=== PATIENT | female | born 1945 | race Two or more races ===

== ENCOUNTER 2017-10-06 06:59 | Outpatient (CLI) | payer OTHER ==
[~2017-10-06 06:59] MED LIST: ANTIVERT25 M1 PO; ASA325 M1; BACLOFEN20 MG; CATAFLAM50 MG PO; DIAZEPAM10 MG PO; FEOSOL1 TAB; FOLIC ACID1 MG; GILTUSS LIQUID237 M1 PO; MEDROL4 MG; PLAVIX75 MG; PREVACID 15MG15 MG; SYNTHROID125 MCG PO; SYNTHROID50 MCG; SYNTHROID50 MCG PO; ULTRAM ER200 MG PO; ZYRTEC10 MG PO
== END 2017-10-06 15:26 | disposition home or self-care (01) ==
LOC: NUCLEAR 06:59
DX: I11.9 Hypertensive heart disease without heart failure (principal); E11.9 Type 2 diabetes mellitus without complications; I25.10 Atherosclerotic heart disease of native coronary artery without angina pectoris
CPT/HCPCS: 78452; 93017; A9500; J0153

== ENCOUNTER 2018-03-07 16:02 | Emergency (ER) | payer OTHER ==
[~2018-03-07] VITALS: Ht 160 cm; Wt 72.1 kg
== END 2018-03-07 18:11 | disposition home or self-care (01) ==
LOC: ER 16:02
DX: R51 Headache (principal); H53.8 Other visual disturbances; F41.1 Generalized anxiety disorder

== ENCOUNTER → 2018-05-18 | Outpatient (CLI) | payer OTHER | END | disposition home or self-care (01) | LOC: NUCLEAR 13:13 | DX: M81.0 Age-related osteoporosis without current pathological fracture (principal) ==

== ENCOUNTER → 2018-08-18 | Emergency (ER) | payer OTHER ==
[~2018-08-18] VITALS: Ht 160 cm; Wt 72.6 kg
[~2018-08-18] MED LIST changes: +NORVASC5 MG PO
== END | disposition home or self-care (01) ==
LOC: ER 15:35
DX: I16.0 Hypertensive urgency (principal); I10 Essential (primary) hypertension

== ENCOUNTER → 2020-03-10 | Emergency (ER) | payer OTHER ==
[~2020-03-10] VITALS: Ht 160 cm; Wt 68.0 kg
[~2020-03-10] MED LIST changes: +ECOTRIN81 MG
== END | disposition home or self-care (01) ==
LOC: ER 07:09
DX: M17.11 Unilateral primary osteoarthritis, right knee (principal)

== ENCOUNTER 2020-08-03 15:33 | Outpatient (CLI) | payer OTHER | END 2020-08-03 16:01 | disposition home or self-care (01) | LOC: OFIC 805 15:33 | PROVIDERS: ATTEND Otolaryngology Otology & Neurotology | DX: K05.5 Other periodontal diseases (principal); F41.8 Other specified anxiety disorders ==

== ENCOUNTER 2020-10-14 10:09 | Emergency (ER) | payer OTHER ==
[~2020-10-14] VITALS: Ht 160 cm; Wt 68.0 kg
[2020-10-14] MEDS ORDERED: PEPCID AC20 MG PO (14:26)
[2020-10-14] MEDS ORDERED: DICY20TA PO (14:26)
[2020-10-14] MEDS ORDERED: CIPRO500 MG PO (14:26)
== END 2020-10-14 14:31 | disposition home or self-care (01) ==
LOC: ER 10:09
DX: R19.7 Diarrhea, unspecified (principal); K29.60 Other gastritis without bleeding; A05.9 Bacterial foodborne intoxication, unspecified

== ENCOUNTER 2021-01-19 09:49 | Outpatient (CLI) | payer OTHER ==
[~2021-01-19 09:49] MED LIST changes: +CIPRO500 MG PO; +DICY20TA PO; +PEPCID AC20 MG PO
== END 2021-01-19 09:55 | disposition home or self-care (01) ==
LOC: RAD 09:49
PROVIDERS: ATTEND Orthopaedic Surgery
DX: M25.561 Pain in right knee (principal)

== ENCOUNTER → 2021-04-19 | Outpatient (CLI) | payer OTHER | END | disposition home or self-care (01) | LOC: LAB 09:11 | PROVIDERS: ATTEND Orthopaedic Surgery | DX: D64.9 Anemia, unspecified (principal); E88.9 Metabolic disorder, unspecified; D68.8 Other specified coagulation defects; N39.0 Urinary tract infection, site not specified; A49.02 Methicillin resistant Staphylococcus aureus infection, unspecified site; E11.9 Type 2 diabetes mellitus without complications; Z76.89 Persons encountering health services in other specified circumstances; I10 Essential (primary) hypertension ==

== ENCOUNTER 2021-04-30 10:45 | Inpatient (IN) | payer OTHER ==
[~2021-04-30] VITALS: Ht 160 cm; Wt 63.5 kg
[2021-04-30] MEDS ORDERED: BUSPAR PO (13:59)
[2021-04-30] MEDS ORDERED: SYNTHROID50 MCG PO (14:00)
[2021-04-30] MEDS ORDERED: FIORICET (14:00)
[2021-04-30] MEDS ORDERED: CATFLAN PO (14:01)
[2021-04-30] MEDS ORDERED: LOSARTAN POTASS25 MG PO (14:01)
[2021-04-30] MEDS ORDERED: GABAPEN PO (14:01)
[2021-04-30] MEDS ORDERED: XANAX XR0.5 MG PO (14:02)
[2021-05-04] MEDS ORDERED: DICYCLOMINE HCL10 MG (08:14)
[2021-05-04] MEDS ORDERED: GABAPENTIN100 M2 PO (08:19)
[2021-05-04] MEDS ORDERED: DICLOFENAC35 MG (08:24)
[2021-05-05] MEDS ORDERED: BUTALB-ACETAMI1 EACH (08:14)
== END 2021-05-08 16:49 | disposition home or self-care (01) | DRG 470 ==
LOC: O/R 05-04 05:55 → SURH 05-04 05:55
PROVIDERS: ADMIT Orthopaedic Surgery; ATTEND Orthopaedic Surgery
PROC: 8E0Y0CZ Robotic Assisted Procedure of Lower Extremity, Open Approach (ICD-10-PCS; 2021-05-04)
PROC: 0SRC0J9 Replacement of Right Knee Joint with Synthetic Substitute, Cemented, Open Approach (ICD-10-PCS; principal; 2021-05-04 07:00)
PROC: 30233N1 Transfusion of Nonautologous Red Blood Cells into Peripheral Vein, Percutaneous Approach (ICD-10-PCS; 2021-05-07)
DX: M17.11 Unilateral primary osteoarthritis, right knee (principal); D62 Acute posthemorrhagic anemia; I10 Essential (primary) hypertension; E03.8 Other specified hypothyroidism; E78.00 Pure hypercholesterolemia, unspecified

== ENCOUNTER 2021-10-04 09:55 | Emergency (ER) | payer OTHER ==
[~2021-10-04] VITALS: Ht 160 cm; Wt 62.1 kg
[~2021-10-04 09:55] MED LIST changes: +BUSPAR PO; +BUTALB-ACETAMI1 EACH; +CATFLAN PO; +DICLOFENAC35 MG; +DICYCLOMINE HCL10 MG; +FIORICET; +GABAPEN PO; +GABAPENTIN100 M2 PO; +LOSARTAN POTASS25 MG PO; +XANAX XR0.5 MG PO
[2021-10-04] MEDS ORDERED: COZAAR50 MG (10:26)
== END 2021-10-04 15:28 | disposition home or self-care (01) ==
LOC: ER 09:55
DX: K29.70 Gastritis, unspecified, without bleeding (principal)

== ENCOUNTER 2021-12-03 07:24 | Outpatient (CLI) | payer OTHER ==
[~2021-12-03 07:24] MED LIST changes: +COZAAR50 MG
== END 2021-12-03 07:26 | disposition home or self-care (01) ==
LOC: NUCLEAR 07:24
PROVIDERS: ATTEND Internal Medicine Cardiovascular Disease
DX: I25.9 Chronic ischemic heart disease, unspecified (principal)
CPT/HCPCS: 78452; 93017; A9500; J0153

== ENCOUNTER → 2022-04-15 07:02 | Outpatient (CLI) | payer OTHER | END | disposition home or self-care (01) | LOC: LAB 07:02 | PROVIDERS: ATTEND Internal Medicine Hematology & Oncology | DX: D50.8 Other iron deficiency anemias (principal); R79.9 Abnormal finding of blood chemistry, unspecified; I10 Essential (primary) hypertension; R74.02 Elevation of levels of lactic acid dehydrogenase [LDH]; K76.89 Other specified diseases of liver; D63.8 Anemia in other chronic diseases classified elsewhere; D51.1 Vitamin B12 deficiency anemia due to selective vitamin B12 malabsorption with proteinuria; E03.8 Other specified hypothyroidism; E06.3 Autoimmune thyroiditis; C56.9 Malignant neoplasm of unspecified ovary; R97.8 Other abnormal tumor markers; R97.1 Elevated cancer antigen 125 [CA 125]; I25.119 Atherosclerotic heart disease of native coronary artery with unspecified angina pectoris ==

== ENCOUNTER → 2022-06-08 07:18 | Outpatient (CLI) | payer OTHER | END | disposition home or self-care (01) | LOC: LAB 07:18 | PROVIDERS: ATTEND Internal Medicine Hematology & Oncology | DX: D50.8 Other iron deficiency anemias (principal); R79.9 Abnormal finding of blood chemistry, unspecified; I10 Essential (primary) hypertension; R74.02 Elevation of levels of lactic acid dehydrogenase [LDH]; K76.89 Other specified diseases of liver; D51.8 Other vitamin B12 deficiency anemias; D51.0 Vitamin B12 deficiency anemia due to intrinsic factor deficiency; D51.1 Vitamin B12 deficiency anemia due to selective vitamin B12 malabsorption with proteinuria; D56.4 Hereditary persistence of fetal hemoglobin [HPFH]; I25.119 Atherosclerotic heart disease of native coronary artery with unspecified angina pectoris; E03.8 Other specified hypothyroidism ==

== ENCOUNTER → 2022-09-29 07:14 | Outpatient (CLI) | payer OTHER | END | disposition home or self-care (01) | LOC: LAB 07:14 | PROVIDERS: ATTEND Internal Medicine Hematology & Oncology | DX: D51.1 Vitamin B12 deficiency anemia due to selective vitamin B12 malabsorption with proteinuria (principal); D56.4 Hereditary persistence of fetal hemoglobin [HPFH]; I10 Essential (primary) hypertension; I25.119 Atherosclerotic heart disease of native coronary artery with unspecified angina pectoris; E03.8 Other specified hypothyroidism ==

== ENCOUNTER 2023-03-05 23:34 | Emergency (ER) | payer OTHER ==
[~2023-03-05] VITALS: Ht 167.6 cm; Wt 61.7 kg
[2023-03-05] MEDS ORDERED: NORVASC10 MG (23:45)
[2023-03-05] MEDS ORDERED: DEXILANT30 MG (23:46)
[2023-03-06 02:48] LABS: HEMATOCRIT 32.9 % (36.0-45.00); HEMOGLOBIN 11.4 g/dL (12.0-15.00); MEAN CELL VOLUME 98.6 fL (80.00-100.00); MEAN CORPUSCULAR HEMOGLOBIN 34.2 pg (27.00-32.0); MEAN CORPUSCULAR HGB CONC 34.7 g/dl (32.0-36.0); PLATELET COUNT 196 K/uL (150-450); RED BLOOD COUNT 3.33 M/uL (4.00-6.00); RED CELL DISTRIBUTION WIDTH 12.1 % (11.5-14.5)
[2023-03-06 03:30] LABS: ALBUMIN 3.6 gm/dL (3.4-5.0); BILIRUBIN TOTAL 0.51 mg/dL (0.3-1.2); CALCIUM 9.3 mg/dL (8.5-10.1); CREATININE SERUM 0.69 mg/dL (0.55-1.02); GFR 82.5; GLOBULINA 3.4 G/DL (2.4-3.5); POTASSIUM 3.97 mEq/L (3.5-5.1)
[2023-03-06 04:46] LABS: PH,URINE 6.5 (5.0-8.0); URINE APPEARANCE Clear; URINE BILIRRUBIN Negative (NEGATIVE); URINE BLOOD Moderate; URINE COLOR Yellow; URINE GLUCOSE Negative (NEGATIVE); URINE LEUKOCYTE Negative; URINE NITRATE Negative; URINE UROBILINOGEN 0.2 E.U./dl
[2023-03-06 04:47] LABS: URINE BACTERIA 18.8 uL (0.0-1933); URINE RBC 128.7 uL (0.0-20.8)
[2023-03-06 04:48] LABS: URINE PROTEIN 100 (NEGATIVE)
[2023-03-06] MEDS ORDERED: XANAX0.25 MG PO (05:45)
== END 2023-03-06 05:54 ==
LOC: ER 23:34
PROVIDERS: General Practice
DX: R10.13 Epigastric pain (principal); I10 Essential (primary) hypertension
CPT/HCPCS: 36415; 93005; 96365; 96366; 99284; J2250; J3490; J7030